=== PATIENT | male | born 1955 | race Caucasian/White ===

== ENCOUNTER 2020-01-22 15:18 | Emergency (ER) | payer OTHER ==
[2020-01-22 16:22] LABS: ANION GAP 14.7 mEq/L (7-13); CHLORIDE,CL 103 mmol/L (98-107); SODIUM,NA 138 mmol/L (136-145)
--- NOTE | 2020-01-22 17:44 | EDM.PDOC ---
Scribed by Genevieve Bailey 01/22/20 2914 for Kira Greenberg, [facility] HPI GENERAL MEDICAL PROBLEM - General Chief Complaint: Neuro Symptoms/Deficits Stated Complaint: AMBULANCE Time Seen by Provider: 01/22/20 15:39 Source of Information: Reports: Patient, EMS, EMS Notes Reviewed, RN, RN Notes Reviewed History Limitations: Reports: No Limitations - History of Present Illness INITIAL COMMENTS - FREE TEXT/NARRATIVE: A 64-year-old male brought in by ambulance for left sided weakness since yesterday at 2 P.M. Patient reports he drove from [place] to [place] and started having left arm weakness. He drove gradually to the Rest [facility] at [place] and rested. He thought that resting would improve his left arm and leg weakness. He took Tylenol for headache but reports that his left arm ane leg weakness did not improve as anticipated. He then called the ambulance. No history of stroke or heart disease. He is not on any medication. He denies any known medical diagnosis. Denies chest pain, shortness of breath or head trauma/injury/fall. Onset Date: 01/21/20 Duration: Getting Worse Location: Reports: Upper Extremity, Left, Lower Extremity, Left Improves with: Reports: None Worsens with: Reports: None Associated Symptoms: Reports: No Other Symptoms Treatments MIXOLOGIST: Reports: Other (see below) (Tylenol) - Related Data Allergies Allergy/AdvReac Type Severity Reaction Status Date / Time No Known Allergies Allergy Verified 01/22/20 15:39 Home Meds: Home Meds Acetaminophen 650 mg PO ASDIRECTED PRN 01/22/20 [History] ED ROS GENERAL - Review of Systems Review Of Systems: Comprehensive ROS is negative, except as noted in HPI. ED EXAM, NEURO - Physical Exam Exam: See Below Exam Limited By: Other (left arm and leg weakness) General Appearance: Alert, No Apparent Distress Eye Exam: Bilateral Eye: EOMI, Normal Inspection, PERRL Ears: Normal External Exam, Normal Canal, Hearing Grossly Normal, Normal TMs Nose: Normal Inspection, Normal Mucosa, No Blood Throat/Mouth: Normal Inspection, Normal Lips, Normal Gums, Normal Oropharynx, Normal Voice, No Airway Compromise, Other (missing teeth) Head Exam: Atraumatic, Normocephalic Neck: Normal Inspection, Supple, Non-Tender, Full Range of Motion Respiratory/Chest: No Respiratory Distress, Lungs Clear, Normal Breath Sounds, No Accessory Muscle Use, Chest Non-Tender Cardiovascular: Normal Peripheral Pulses, Regular Rate, Rhythm, No Edema, No Gallop, No JVD, No Murmur, No Rub GI/Abdominal: Normal Bowel Sounds, Soft, Non-Tender, No Organomegaly, No Dis tention, No Abnormal Bruit, No Mass (Male) Exam: Deferred Rectal (Males) Exam: Deferred Neurological: Alert, Normal Mood/Affect, CN II-XII Intact, Oriented x 3, Abnormal Finger to Nose (left) Extremities: Normal Inspection, Limited Range of Motion (due to left leg weakness) Psychiatric: Normal Affect, Normal Mood Skin Exam: Warm, Dry, Intact, Normal Color, No Rash EKG INTERPRETATION EKG Date: 01/22/20 Time: 15:36 Rhythm: Other (sinus rhythm) Rate (Beats/Min): 76 [place]: Normal P-Wave: Present QRS: Normal ST-T: Normal QT: Normal Course - Vital Signs Last Recorded V/S: Last Vital Signs Temp 97.6 F 01/22/20 15:18 Pulse 75 01/22/20 15:18 Resp 20 01/22/20 15:18 BP 180/93 H 01/22/20 15:18 Pulse Ox 99 01/22/20 15:18 - Orders/Labs/Meds Orders: Active Orders 24 hr Category Date Time Status EKG 12 Lead [EKG Documentation Completion] [RC] STAT Care 01/22/20 15:41 Active Head wo Cont [CT] Stat Exams 01/22/20 15:34 Taken CORONAVIRUS COVID-19 RAPID [MOLEC] Stat Lab 01/22/20 16:39 Received Labs: Laboratory Tests 01/22/20 01/22/20 01/22/20 Range/Units 15:42 15:42 15:42 WBC 6.6 (5.0-10.0) 10^3/uL RBC 4.70 (4.6-6.2) 10^6/uL Hgb 15.5 (14.0-18.0) g/dL Hct 45.0 (40.0-54.0) % MCV 95.7 (80-100) fL MCH 33.0 (27.0-34.0) pg MCHC 34.4 (33.0-35.0) g/dL Plt Count 284 (150-450) 10^3/uL Neut % (Auto) 48.9 (42.2-75.2) % Lymph % (Auto) 36.9 (20.5-50.1) % [place] % (Auto) 9.1 H (2-8) % Eos % (Auto) 4.5 H (1.0-3.0) % Baso % (Auto) 0.6 (0.0-1.0) % PT 9.4 (9.0-12.0) SEC INR 1.0 (0.9-1.2) Sodium 138 (136-145) mmol/L Potassium 3.7 (3.5-5.1) mmol/L Chloride 103 (98-107) mmol/L Carbon Dioxide 24 (21-32) mmol/L Anion Gap 14.7 H (7-13) mEq/L BUN 11 (7-18) mg/dL Creatinine 1.18 (0.70-1.30) mg/dL Est Cr Clr Drug Dosing 62.80 mL/min Estimated GFR (MDRD) > 60 BUN/Creatinine Ratio 9.3 (No establ ref range) Glucose 106 H (74-99) mg/dL Calcium 8.3 L (8.5-10.1) mg/dL Total Bilirubin 0.5 (0.2-1.0) mg/dL AST 22 (15-37) U/L ALT 16 (16-63) U/L Alkaline Phosphatase 65 (46-116) U/L Troponin I < 0.017 (0.000-0.056) ng/mL Total Protein 7.0 (6.4-8.2) g/dL Albumin 3.3 L (3.4-5.0) g/dL Globulin 3.7 Albumin/Globulin Ratio 0.89 - Radiology Interpretation Free Text/Narrative:: Head CT: Subtle ischemic changes parietal convexity, on the right. No sign of intracranial bleed, mass or hydrocephalus. See rad report. - Re-Assessments/Exams Free Text/Narrative Re-Assessment/Exam: Lab results and CT scan reviewed with the patient. [facility] in [place] called, Dr. Snow, neurologist accepted the patient. Dr. Rea, hospitalist, also accepted the patient. COVID negative . Patient in agreement to plan. 01/22/20 17:43 Departure - Departure Time of Disposition: 16:54 Disposition: DC/Tfer to Acute Hospital 02 Condition: Fair Clinical Impression: Cerebrovascular accident (CVA) Qualifiers: CVA mechanism: unspecified Qualified Code(s): I63.9 - Cerebral infarction, unspecified - Discharge Information *PRESCRIPTION DRUG MONITORING PROGRAM REVIEWED*: Not Applicable *COPY OF PRESCRIPTION DRUG MONITORING REPORT IN PATIENT EDIE: Not Applicable Forms: ED Department Discharge, Interfacility Transfer EMTALA Sepsis Event Note (ED) - Focused Exam Vital Signs: Vital Signs Temp Pulse Resp BP Pulse Ox 01/22/20 15:18 97.6 F 75 20 180/93 H 99 - My Orders Last 24 Hours: My Active Orders 01/22/20 15:34 Head wo Cont [CT] Stat 01/22/20 15:41 EKG 12 Lead [EKG Documentation Completion] [RC] STAT 01/22/20 16:39 CORONAVIRUS COVID-19 RAPID [MOLEC] Stat - Assessment/Plan Last 24 Hours: My Active Orders 01/22/20 15:34 Head wo Cont [CT] Stat 01/22/20 15:41 EKG 12 Lead [EKG Documentation Completion] [RC] STAT 01/22/20 16:39 CORONAVIRUS COVID-19 RAPID [MOLEC] Stat I have read and agree with the documentation that has been completed regarding this visit. By signing this record, I attest that the documentation was c ompleted in my physical presence and is an accurate record of the encounter.
--- NOTE | 2020-01-22 19:02 | CT ---
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 Scan technique: Volume acquisition of data emergency unenhanced CT scan of the head and brain obtained with the patient lying supine on the Siemens multislice scanner [place], [place]. All data archived in the PAC system for storage, reformatting axial/sagittal/coronal planes and study (bone/brain windows). ER notified of results at 1540 hours. Interpretation: Abnormal. 1. Generalized moderately severe but symmetric cerebral cortical atrophy with underlying mirror-image normal ventricles. 2. Isolated areas of decreased attenuation in the peripheral parietal cortex over the convexity right cerebral hemisphere (coronal slice #23; sagittal slice #24; and, axial images #24). Subtle mass effect surrounding sulci suggesting edema (doubt neoplasm). 3. No supratentorial or posterior fossa mass lesion. No hydrocephalus. No shift of the midline structures. 4. No sign of acute intracerebral, intraventricular or subarachnoid bleed. 5. Uniformly thick bony calvarium. Mucoperiosteal inflammation ethmoid sinuses. Otherwise symmetric clear pneumatization of the paranasal and mastoid sinuses. No pathologic air-fluid levels. No soft tissue tumor or bony wall destruction. 6. Cerebellum and brainstem unremarkable. CONCLUSION: Subtle ischemic changes parietal convexity, on the right. No sign of intracranial bleed, mass or hydrocephalus.
== END 2020-01-22 17:27 ==
LOC: DL.ED 15:18
DX: I63.9 Cerebral infarction, unspecified (principal); Z20.828 Contact with and (suspected) exposure to other viral communicable diseases
CPT/HCPCS: 36415; 70450; 80053; 82962; 84484; 85025; 85610; 93005; 93010; 99284; 99285-25; U0002